=== PATIENT | female | born 1930 | race Caucasian/White ===

== ENCOUNTER 2016-11-23 16:48 | Inpatient (IN) | payer OTHER ==
[~2016-11-23] VITALS: Ht 154.9 cm; Wt 60.8 kg
[2016-11-23 16:48] VITALS: BP_SYST 167
[2016-11-23] MEDS ORDERED: MORPHINE 2 MG/ML INJ. SYRINGE IVP ONE (17:00)
[2016-11-23] MEDS ORDERED: ONDANSETRON HCL 4 MG/2 ML VIAL IVP ONE (17:00)
[2016-11-23] MEDS ORDERED: SIMV20TA2 PO (17:08)
[2016-11-23] MEDS ORDERED: ATEN50TA PO (17:08)
[2016-11-23] MEDS ORDERED: NIFE-2 PO (17:08)
[2016-11-23 17:23] LABS: ANION GAP 6 (5-15); CALCIUM 8.7 mg/dL (8.4-11.0); CHLORIDE 105 mmol/L (98-107); CREATININE 1.67 mg/dL (0.55-1.30); GLUCOSE 120 mg/dL (70-99); POTASSIUM 4.7 mmol/L (3.5-5.1); SODIUM SERUM 134 mmol/L (136-145); UREA NITROGEN, BLOOD 16 mg/dL (8-21)
[2016-11-23 17:24] LABS: BASOPHILS % (AUTO) 0.3 % (0.0-2.0); EOSINOPHILS # (AUTO) 0.2 K/uL (0.0-0.4); EOSINOPHILS % (AUTO) 2.2 % (0.0-4.0); HEMATOCRIT 37.2 % (36-48); HEMOGLOBIN 12.5 g/dL (12.0-16.0); LYMPHOCYTES # (AUTO) 1.4 K/uL (1.0-5.5); LYMPHOCYTES % (AUTO) 19.8 % (20.5-51.5); MEAN CORPUSCULAR HEMOGLOBIN 32 pg (27-31); MEAN CORPUSCULAR HGB CONC 34 % (32-36); MEAN CORPUSCULAR VOLUME 96 fL (79.0-98.0); MONOCYTES # (AUTO) 0.6 K/uL (0.0-1.0); MONOCYTES % (AUTO) 9.4 % (1.7-9.3); NEUTROPHILS # (AUTO) 4.7 K/uL (1.8-7.7); NEUTROPHILS % (AUTO) 68.3 % (40.0-70.0); PLATELET COUNT (AUTO) 262 K/uL (130-430); RED BLOOD CELL COUNT(AUTO) 3.89 MIL/uL (4.2-6.2); RED CELL DISTRIBUTION WIDTH 13.4 % (9.0-15.0); WHITE BLOOD COUNT (AUTO) 6.9 K/uL (4.8-10.8)
[2016-11-23 17:27] LABS: INR 0.9 (0.8-1.2); PROTHROMBIN TIME 10.2 SECS (9.5-12.5)
[2016-11-23 17:28] LABS: ALANINE AMINOTRANSFERASE 22 U/L (12-78); ALBUMIN 3.3 g/dL (3.4-4.8); ASPARTATE AMINOTRANSFERASE 31 U/L (10-37); TOTAL BILIRUBIN 0.4 mg/dL (0.0-1.0); TOTAL PROTEIN, SERUM 6.9 g/dL (6.4-8.3)
[2016-11-23] MEDS ORDERED: ENOXAPARIN SODIUM 60 MG/0.6 ML SYRINGE SUBCUT ONE (18:00)
[2016-11-23 18:44] VITALS: BP_SYST 147
[2016-11-23 19:40] VITALS: BP_SYST 141
[2016-11-23] MEDS ORDERED: HEPARIN 25,000 UNITS/D5W 250ML 250 ML IV PRN (19:45)
[2016-11-23] MEDS ORDERED: HEPARIN SODIUM,PORCINE 3000 UNITS/0.6 ML BOLUS IVP PRN (20:00)
[2016-11-23] MEDS ORDERED: HEPARIN SODIUM,PORCINE 5000 UNITS/ML VIAL IV ONE (20:00)
[2016-11-23] MEDS ORDERED: HEPARIN SODIUM,PORCINE 2000 UNITS/0.4 ML BOLUS IVP PRN (20:00)
[2016-11-23] MEDS: ASPIRIN 325 MG TABLET PO SCH (20:50)
[2016-11-23] MEDS ORDERED: SIMVASTATIN 20 MG TABLET PO SCH (21:00)
[2016-11-24] VITALS (12 sets, daily range): BP systolic 120–155
[2016-11-24] MEDS ORDERED: NITROGLYCERIN 250 ML IV PRN (04:45)
[2016-11-24] MEDS ORDERED: NITROGLYCERIN 250 ML IV ONE (04:56)
[2016-11-24 08:53] LABS: BASOPHILS # (AUTO) 0.2 K/uL (0.0-0.2); BASOPHILS % (AUTO) 1.9 % (0.0-2.0); EOSINOPHILS # (AUTO) 0.2 K/uL (0.0-0.4); EOSINOPHILS % (AUTO) 1.3 % (0.0-4.0); HEMATOCRIT 35.3 % (36-48); HEMOGLOBIN 11.7 g/dL (12.0-16.0); LYMPHOCYTES # (AUTO) 1.3 K/uL (1.0-5.5); LYMPHOCYTES % (AUTO) 10.7 % (20.5-51.5); MEAN CORPUSCULAR HEMOGLOBIN 32 pg (27-31); MEAN CORPUSCULAR HGB CONC 33 % (32-36); MEAN CORPUSCULAR VOLUME 95 fL (79.0-98.0); MONOCYTES # (AUTO) 0.7 K/uL (0.0-1.0); MONOCYTES % (AUTO) 5.3 % (1.7-9.3); NEUTROPHILS # (AUTO) 10.2 K/uL (1.8-7.7); NEUTROPHILS % (AUTO) 80.8 % (40.0-70.0); PLATELET COUNT (AUTO) 221 K/uL (130-430); RED BLOOD CELL COUNT(AUTO) 3.73 MIL/uL (4.2-6.2); RED CELL DISTRIBUTION WIDTH 13.6 % (9.0-15.0); WHITE BLOOD COUNT (AUTO) 12.6 K/uL (4.8-10.8)
[2016-11-24] MEDS ORDERED: LISINOPRIL 10 MG TABLET (PRINIVIL) PO SCH (09:00)
[2016-11-24] MEDS ORDERED: ATENOLOL 50 MG TABLET (TENORMIN) PO SCH (09:00)
[2016-11-24 09:05] LABS: ANION GAP 3 (5-15); CALCIUM 8.8 mg/dL (8.4-11.0); CHLORIDE 107 mmol/L (98-107); CREATININE 1.63 mg/dL (0.55-1.30); GLUCOSE 110 mg/dL (70-99); POTASSIUM 5.5 mmol/L (3.5-5.1); SODIUM SERUM 139 mmol/L (136-145); UREA NITROGEN, BLOOD 17 mg/dL (8-21)
[2016-11-24 09:10] LABS: ALANINE AMINOTRANSFERASE 43 U/L (12-78); ASPARTATE AMINOTRANSFERASE 64 U/L (10-37); TOTAL BILIRUBIN 0.7 mg/dL (0.0-1.0); TOTAL PROTEIN, SERUM 6.4 g/dL (6.4-8.3)
[2016-11-24] MEDS ORDERED: SODIUM POLYSTYRENE SULFONATE 15 GM/60 ML UDBTL PO ONE (09:30)
[2016-11-24] MEDS: ASPIRIN 325 MG TABLET PO SCH (09:59)
[2016-11-24] MEDS ORDERED: ASPIRIN 325 MG TABLET PO ONE (10:00)
[2016-11-24] MEDS ORDERED: SIMVASTATIN 40 MG TABLET PO SCH (21:00)
== END 2016-11-24 13:10 | disposition short-term general hospital (02) | DRG 282 ==
LOC: SED 16:48 → STU 18:19 → SIC 11-24 04:41
PROVIDERS: ADMIT Internal Medicine Hospice and Palliative Medicine; ATTEND Internal Medicine Hospice and Palliative Medicine
DX: I21.4 Non-ST elevation (NSTEMI) myocardial infarction (principal); F03.90 Unspecified dementia, unspecified severity, without behavioral disturbance, psychotic disturbance, mood disturbance, and anxiety; I20.0 Unstable angina; I10 Essential (primary) hypertension; E78.5 Hyperlipidemia, unspecified; E11.9 Type 2 diabetes mellitus without complications; N28.9 Disorder of kidney and ureter, unspecified; H91.90 Unspecified hearing loss, unspecified ear; Z79.899 Other long term (current) drug therapy; I25.2 Old myocardial infarction; Z90.11 Acquired absence of right breast and nipple
CPT/HCPCS: 36415; 71010; 80053; 83880; 84484; 85025; 85610-TC; 85730-TC; 87081; 93005; 93306; 96372; 96374; 96375; 99285; J1644; J1650; J2270; J2405; J3490

== ENCOUNTER 2016-12-06 02:06 | Emergency (ER) | payer OTHER ==
[~2016-12-06] VITALS: Ht 157.5 cm; Wt 65.3 kg
[2016-12-06 02:06] VITALS: BP_SYST 177
[~2016-12-06 02:06] MED LIST: ATEN50TA PO; NIFE-2 PO; SIMV20TA2 PO
--- NOTE | 2016-12-06 02:06 | NUR ---
Placed in room 01 . Placed on aerosol line operator, blood pressure machine and pulse oximeter. To gown for exam. Side rails up. Report given to SATHISH [place].
--- NOTE | 2016-12-06 02:06 | NUR ---
Pt came bls for anxiety attack. Pt has a hx of dementia and called 911 due to having SOB, hyperventilating, and L arm pain. Pt appears to be anxious and crying out. VSS. Pt is AAOx3. Will continue to monitor via cardiac exercise physiologist. No other injuries or compliants mentioned/noted.
--- NOTE | 2016-12-06 02:30 | NUR ---
ER at bedside examining patient.
[2016-12-06] MEDS ORDERED: DONE10TA44 PO (02:37)
[2016-12-06] MEDS ORDERED: FERR-57 PO (02:38)
[2016-12-06] MEDS ORDERED: LEVO25TA7 PO (02:39)
[2016-12-06] MEDS ORDERED: LIP40 PO (02:39)
[2016-12-06] MEDS ORDERED: SENN8.6T19 PO (02:43)
[2016-12-06] MEDS ORDERED: PRO40 PO (02:43)
[2016-12-06] MEDS ORDERED: LORazepam 2 MG/ML VIAL IM ONE (02:45)
[2016-12-06] MEDS ORDERED: LORazepam 2 MG/ML VIAL (FOR ER USE) ONE (02:56)
--- NOTE | 2016-12-06 03:10 | NUR ---
Called [facility] at spoke with Tisha and gave report and patient eta time to facility of 10 min.
[2016-12-06 03:13] VITALS: BP_SYST 145
--- NOTE | 2016-12-06 03:13 | NUR ---
Patient given written and verbal discharge instructions and verbalizes understanding. ER MD discussed with patient the results and treatment provided. Patient in stable condition. ID arm band removed. Patient educated on pain management and to follow up with PMD. Pain Scale 2/10. Opportunity for questions provided and answered.
== END 2016-12-06 03:13 | disposition home or self-care (01) ==
LOC: SED 02:06
DX: F41.9 Anxiety disorder, unspecified (principal); F03.90 Unspecified dementia, unspecified severity, without behavioral disturbance, psychotic disturbance, mood disturbance, and anxiety; Z90.11 Acquired absence of right breast and nipple; Z88.6 Allergy status to analgesic agent
CPT/HCPCS: 96372; 99283; J2060; 99284

== ENCOUNTER 2016-12-16 03:15 | Emergency (ER) | payer OTHER ==
[~2016-12-16] VITALS: Ht 157.5 cm; Wt 63.5 kg
[2016-12-16 03:15] VITALS: BP_SYST 121
[~2016-12-16 03:15] MED LIST changes: +DONE10TA44 PO; +FERR-57 PO; +LEVO25TA7 PO; +LIP40 PO; -NIFE-2 PO; +PRO40 PO; +SENN8.6T19 PO; -SIMV20TA2 PO
[2016-12-16] MEDS ORDERED: HEPARIN SODIUM,PORCINE 5000 UNITS/ML VIAL IVP ONE (03:30)
[2016-12-16 03:33] VITALS: BP_SYST 121
[2016-12-16] MEDS ORDERED: HEPARIN SODIUM,PORCINE 5000 UNITS/ML VIAL ONE (03:40)
[2016-12-16 03:55] LABS: HEMATOCRIT 31.9 % (36-48); HEMOGLOBIN 10.1 g/dL (12.0-16.0); RED BLOOD CELL COUNT(AUTO) 3.31 MIL/uL (4.2-6.2); WHITE BLOOD COUNT (AUTO) 9.6 K/uL (4.8-10.8)
[2016-12-16 03:56] LABS: BASOPHILS % (AUTO) 0.5 % (0.0-2.0); EOSINOPHILS # (AUTO) 0.3 K/uL (0.0-0.4); EOSINOPHILS % (AUTO) 2.9 % (0.0-4.0); LYMPHOCYTES # (AUTO) 1.5 K/uL (1.0-5.5); LYMPHOCYTES % (AUTO) 15.5 % (20.5-51.5); MEAN CORPUSCULAR HEMOGLOBIN 30 pg (27-31); MEAN CORPUSCULAR HGB CONC 32 % (32-36); MEAN CORPUSCULAR VOLUME 96 fL (79.0-98.0); MONOCYTES # (AUTO) 0.6 K/uL (0.0-1.0); MONOCYTES % (AUTO) 6.2 % (1.7-9.3); NEUTROPHILS # (AUTO) 7.2 K/uL (1.8-7.7); NEUTROPHILS % (AUTO) 74.9 % (40.0-70.0); PLATELET COUNT (AUTO) 333 K/uL (130-430); RED CELL DISTRIBUTION WIDTH 14.7 % (9.0-15.0)
[2016-12-16 04:06] LABS: ANION GAP 8 (5-15); CALCIUM 8.9 mg/dL (8.4-11.0); CHLORIDE 108 mmol/L (98-107); CREATININE 1.86 mg/dL (0.55-1.30); GLUCOSE 174 mg/dL (70-99); POTASSIUM 3.7 mmol/L (3.5-5.1); SODIUM SERUM 139 mmol/L (136-145); UREA NITROGEN, BLOOD 16 mg/dL (8-21)
[2016-12-16 04:10] LABS: ALANINE AMINOTRANSFERASE 20 U/L (12-78); ASPARTATE AMINOTRANSFERASE 21 U/L (10-37); INR 0.9 (0.8-1.2); PROTHROMBIN TIME 10.3 SECS (9.5-12.5); TOTAL BILIRUBIN 0.3 mg/dL (0.0-1.0); TOTAL PROTEIN, SERUM 6.4 g/dL (6.4-8.3)
== END 2016-12-16 03:33 | disposition short-term general hospital (02) ==
LOC: SED 03:15
DX: I21.09 ST elevation (STEMI) myocardial infarction involving other coronary artery of anterior wall (principal); D64.9 Anemia, unspecified; I10 Essential (primary) hypertension; E03.9 Hypothyroidism, unspecified; E78.5 Hyperlipidemia, unspecified; Z88.6 Allergy status to analgesic agent
CPT/HCPCS: 36415; 80053; 83880; 84484; 85025; 85610; 85730; 96374; 99285; J1644